=== PATIENT | female | born 1960 | race Two or more races ===

== ENCOUNTER 2024-10-17 02:09 | Inpatient (IN) | payer MEDICAID, SELFPAY ==
[2024-10-17] VITALS (12 sets, daily range): BP systolic 108–166; BP diastolic 65–102; PULSE 70–101; RESP 13–99; TEMP 36.1–37.1; O2SAT 94–99; BMI 32.5
--- NOTE | 2024-10-17 | XR_ITS ---
Examinations: MRI Brain without intravenous contrast. MRA brain without intravenous contrast. MRA carotids without intravenous contrast 3-D vascular reconstructions Date and time of exam: October 09, 2024 0930 hrs. Indications: Headache dizziness and ataxia beginning 10:00 PM last night Technique: Multiple axial and sagittal images of the brain have been obtained MRA brain carotid images without contrast obtained, including 3-D postprocessing, vascular maximum intensity projection images Findings: Sellaturc[place] is not enlarged. The optic chiasm and infundibular stalk are not remarkable. Prepontine and interpeduncular cisterns are not enlarged. No localized enlargement of the medulla or dorys. Fourth ventricle and cerebellar tonsils normal in position. Subacute hemorrhage is not seen. Fourth ventricle is midline. Mass in the cerebellopontine angle region is not evident. 7th and 8th nerve complexes exhibits symmetry. Globes are symmetrical with no retro-orbital mass. Increased white matter signal not significant Diffusion-weighted images demonstrate 4 mm focus restricted diffusion right cerebellar hemisphere, diffusion image 6 with possible signal deficit on the ADC map Mass-effect upon the ventricular system is not identified. MRA carotid images no significant carotid stenoses. MRA brain images 15 mm segment 80% plus stenosis M1 segment left middle cerebral artery Impression: 4 mm focus restricted diffusion right cerebellar hemisphere which may represent an acute infarct, recommend neurology consultation and correlation with clinical findings 15 mm segment 80% plus stenosis M1 segment left middle cerebral artery
--- NOTE | 2024-10-17 02:53 | EKG_ITS ---
[facility] (Formerly [facility]) Test Date: 2024-10-17 Pat Name: REJI HUGGINS Department: Room: - Gender: Female Scrap Piler: : 1960 Requested By: Ketan Crow Order Number: [id number] Reading MD: Ketan Crow Measurements Intervals Leslie Rate: 95 P: 23 WY: 190 QRS: -5 QRSD: 102 T: 26 QT: 384 QTc: 485 Interpretive Statements SINUS RHYTHM LOW QRS VOLTAGE IN PRECORDIAL LEADS [QRS DEFLECTION < 1.0 mV IN CHEST LEADS] MINIMAL VOLTAGE CRITERIA FOR LVH, CONSIDER NORMAL VARIANT [MEETS CRITERIA IN ONE OF: R(aVL), S(V1), R(V5), R(V5/V6)+S(V1)] Compared to ECG 10/07/2022 04:09:12 Low QRS voltage now present Sinus tachycardia no longer present Myocardial infarct finding no longer present /store/S0/[id number].pdf
--- NOTE | 2024-10-17 02:53 | XR_ITS ---
Examination: CTA carotids with intravenous contrast CTA brain, head with intravenous contrast. 2-D sagittal, coronal reconstructions. 3-D reconstructions. Exam date and time: October 09, 2024 0324 hrs. Indications: Stroke alert, onset focal neurologic deficit today CTDI: vol (mGy) 11.1 DLP: (mGycm) 428 Technique: Multiple CTA axial brain, head carotid images post intravenous contrast injection 75 cc, [id number]. 2-D sagittal, coronal reconstructions. 3-D reconstructions, 3-D post processing including vascular maximum intensity projection images. Low dose protocols were performed. One or more of the following dose reduction techniques were used; automated exposure control, adjustment of the mA and/or KV according to patient size, use of iterative reconstruction technique. Findings: Diffusely small left vertebral artery in the neck, both vertebral arteries in the neck are intact No significant stenosis right common carotid artery carotid bifurcation or internal carotid artery Moderate calcification at the left carotid bifurcation but no significant stenosis involving the left common carotid (carotid bifurcation or left internal carotid artery 70% stenosis mid M1 segment left middle cerebral artery No large vessel occlusions Posterior cerebral branches basilar artery do fill as well as anterior cerebral branches Impression: No significant neck arterial stenoses 70% stenosis mid M1 segment left middle cerebral artery
--- NOTE | 2024-10-17 02:53 | XR_ITS ---
Examination: CT brain head without contrast. 2-D sagittal coronal reconstructions Date and time of exam:October 09, 2024 0259 hrs. Indications: Stroke alert, onset focal neurologic deficit today, including onset vertigo dizziness nausea ataxia CTDI: vol (mGy):45.3 DLP: (mGycm):867 Technique: Multiple CT axial sections of the brain have been obtained, 5 mm slice thickness. Contrast has not been administered. 2-D sagittal, coronal reconstructions have been obtained Low dose protocols were performed. One or more of the following dose reduction techniques were used; automated exposure control, adjustment of the mA and/or KV according to patient size, use of iterative reconstruction technique. Findings: No significant ventricular enlargement. Intra-axial or extra-axial hemorrhage density is not seen. No mass effect or midline shift Basal cisterns are not remarkable. Fourth ventricle is midline. Cranial vault intact. Impression: Negative for acute hemorrhage, mass effect or midline shift As clinically warranted, brain MRI MRA without contrast follow-up would best assess for early acute ischemic change as well as assess for demyelinating disease
--- NOTE | 2024-10-17 02:54 | PD.EDRME ---
Rapid Medical Screening Exam [facility] Arrival date/time: 10/17/24 02:09 64F with history of DM presents to ED with daughter for XAVIER, dizziness, and N/V starting between 10 PM to midnight yesterday. On exam, patient has nystagmus. Chief Complaint: Headache Vital signs: Vital Signs Temperature 98.0 F 10/17/24 02:36 Pulse Rate 84 10/17/24 02:36 Respiratory Rate 18 10/17/24 02:36 Blood Pressure 166/95 H 10/17/24 02:36 Pulse Oximetry (%) 99 10/17/24 02:36 Oxygen Delivery Method Room Air 10/17/24 02:36
--- NOTE | 2024-10-17 02:56 | PC.NURSE ---
stroke consult Case # [id number]
--- NOTE | 2024-10-17 03:10 | PD.EDHA ---
ED Headache RME/HPI General Chief Complaint: Headache Stated Complaint: HEADACHE,NAUSEA, DIZZY Time Seen by Provider: 10/17/24 02:56 Arrival date/time: 10/17/24 02:09 RME / HPI RME / HPI Narrative: 10/17/24 02:09 64F with history of DM presents to ED with daughter for XAVIER, dizziness, and N/V starting between 10 PM to midnight yesterday. On exam, patient has nystagmus. ------- Dr. Branch?s Main ED Evaluation: 64yo female presents to the ED for complaints of dizziness, a headache, and nausea x tonight. Patient's daughter states the patient has been complaining of a headache for the last 3 hours, reporting she's been feeling dizzy and nauseous. Patient denies any falls or injuries. Patient denies any chest pain, shortness of breath or any other associated symptoms. No known allergies. Related Data Home Medications ?Medication ?Instructions ?Recorded ?Confirmed cyclobenzaprine 10 mg tablet 10 mg PO HS PRN cramping 10/17/24 10/17/24 dapagliflozin propaned 5 1 tab PO BID 10/17/24 10/17/24 mg-metformin ER 1,000 mg tablet, ext rel 24hr (Xigduo XR) ergocalciferol (vitamin D2) 1,250 1,250 mcg PO QWEEK 10/17/24 10/17/24 mcg (50,000 unit) capsule multivitamin 1 tab PO QDAY 10/17/24 10/17/24 Previous Rx's ?Medication ?Instructions ?Recorded aspirin 81 mg tablet,delayed 81 mg PO QDAY 30 days #30 tabs 10/19/24 release atorvastatin 40 mg tablet 40 mg PO HS 30 days #30 tabs 10/19/24 clopidogrel 75 mg tablet 75 mg PO QDAY 19 days #19 tabs 10/19/24 Allergies Allergy/AdvReac Type Severity Reaction Status Date / Time No Known Allergies Allergy Verified 10/17/24 02:12 Review of Systems Review of Systems Systems Reviewed: All systems reviewed, normal except as documented Narrative Review of Systems: Gen: No fever, no chills, no weight loss EYES: No discharge, no visual changes, no pain HEENT: No ear pain, no congestion, no sore throat PULM: no shortness of breath, no cough, no congestion CV: No chest pain, no dyspnea on exertion, no palpitations GI: + nausea, no vomiting, no diarrhea, no pain, no constipation : No frequency, no urgency, no dysuria Musc/skel: No joint pain, no back pain Skin: No rash. Warm and dry. Psyc: No hallucinations, no depression Heme/Lymph: No easy bleeding or bruising tendencies Neuro: No weakness, + headache, + dizziness Past Medical History Past Medical History CARDIAC: Negative Cardiac Disorders or Congestive Heart Failure RESPIRATORY: Negative Chronic Obstructive Pulmonary Disease (COPD) or Asthma GENITOURINARY: Negative Renal Disease ENDOCRINE: Negative Diabetes Mellitus Type 1 or Diabetes Mellitus Type 2 HEMATOLOGIC: Negative Sickle Cell Disease Surgical History SURGICAL: Positive Section Social History SMOKING STATUS: Never smoker SUBSTANCE USE: does not use ED Exam Narrative Physical exam: GENERAL APPEARANCE: alert and oriented x 4, well-developed, well-nourished, no acute distress VITALS: All vitals were reviewed and the pulse ox is 99% on room air, which is normal according to my interpretation. HEENT: Normocephalic, atraumatic; pupils equal, round, reactive to light; EOMI, mild right horizontal nystagmus that worsens with positional changes; mucous membranes pink, moist; oropharynx clear NECK: Supple LUNGS: CTABL; no wheezes, no rales, no rhonchi HEART: Tachycardia, regular rhythm; normal S1, S2; no murmurs ABDOMEN: non distended; normal BS; soft, no tenderness, no guarding, no rebound; no masses, no organomegaly, no hernia BACK: no CVA tenderness EXTREMITIES: atraumatic; no edema NEUROLOGIC: awake; alert and oriented x4; cranial nerves II-XII grossly intact; no focal sensory or motor deficits; no intention tremor, steccato speech, dysmetria or dysdiadochokinesia PSYCHIATRIC: appropriate mood and affect SKIN: warm, dry, normal color; no rashes Course Course Course Narrative: 0600: Care signed out to Dr. Suarez (emergency physician). Past medical, surgical, social and family history reviewed. Vitals and home medications reviewed. Results and treatment plan discussed. They will assume the care of the patient at this time and will follow the patient, pending MRI. Quality Measures none Orders Category Date Time Status Bedside Blood Glucose NOW Care 10/17/24 02:53 Completed Shredding Machine Knife Changer NOW Care 10/17/24 02:53 Completed Continuous Pulse Oximetry NOW Care 10/17/24 02:53 Completed EKG (ED ONLY) *Do not use* NOW Care 10/17/24 02:53 Completed Fingerstick [Bedside Blood Glucose] NOW Care 10/17/24 02:53 Completed Insert IV NOW Care 10/17/24 02:53 Completed MRI Screening NOW Care 10/17/24 05:21 Completed MRI Screening NOW Care 10/17/24 07:42 Completed NIH Stroke Scale now Care 10/17/24 02:53 Completed NPO NOW Care 10/17/24 02:53 Completed Nurse Swallow Screen x1 Care 10/17/24 02:53 Completed Consult to Neurology / Tele-Neurology Routine Cons 10/17/24 02:[address] angio stroke protocol Stat Exams 10/17/24 02:[address] stroke protocol Stat Exams 10/17/24 02:53 Completed EKG (ED Only) Stat Exams 10/17/24 02:53 Draft MR stroke protocol Stat Exams 10/17/24 Completed CBC Stat Lab 10/17/24 03:04 Completed Comprehensive Metabolic Panel Stat Lab 10/17/24 03:04 Completed Drug Screen,Urine Stat Lab 10/17/24 04:08 Completed Magnesium Stat Lab 10/17/24 03:04 Completed Partial Thromboplastin Time Stat Lab 10/17/24 03:04 Completed Prothrombin Time with INR Stat Lab 10/17/24 03:04 Completed Troponin I Stat Lab 10/17/24 03:04 Completed Urinalysis Stat Lab 10/17/24 04:06 Completed Urine Culture Stat Lab 10/17/24 04:08 Completed Aspirin Chew Med 10/17/24 05:28 Discontinued 81 mg PO X1 ONE Aspirin [Ecotrin] Med 10/18/24 09:00 Discontinued 81 mg PO QDAY LORazepam [Ativan Inj] Med 10/17/24 07:42 Discontinued 1 mg IVP X1 ONE Meclizine HCl [Antivert] Med 10/17/24 02:56 Discontinued 25 mg PO X1 ONE Ondansetron Inj [Zofran Inj] Med 10/17/24 02:53 Discontinued 4 mg IV Q4HR PRN Sodium Chloride 0.9% 1000 ml [Ns] 1,000 ml Med 10/17/24 04:03 Discontinued IV 999 mls/hr Oxygen Delivery NOW RT 10/17/24 02:53 Completed Vital Signs Vital signs: Vital Signs Temperature 98.0 F 10/17/24 02:36 Pulse Rate 84 10/17/24 02:36 Respiratory Rate 18 10/17/24 02:36 Blood Pressure 166/95 H 10/17/24 02:36 Pulse Oximetry (%) 99 10/17/24 02:36 Oxygen Delivery Method Room Air 10/17/24 02:36 Headache MDM Narrative MDM Narrative:: Scribe Attestation: 10/17/24 Danette Ramos am scribing for and in the presence of Dr. Branch. Patient data External records reviewed:: [facility] previous records (Per chart review, patient was seen here on 05/23/24 for a closed head injury.) Clinical information provided by:: patient Social determinants that could affect healthcare access:: none Patient has the following chronic illnesses:: none How is presenting disease/condition affected by chronic disease/condition?: no chronic disease Evaluation data The following diagnostics were reviewed and interpreted by me:: lab results, radiology exam(s) and EKG tracing(s) Lab and/or radiology exams considered but not ordered:: none Interpretation Summary: CBC is normal, CMP is normal, troponin is normal, UA is positive for a UTI, UDS is negative, according to my interpretation. EKG done at 337, sinus tachycardia, rate of 111, normal axis, no ectopy, generalized ST abnormalities, no STEMI, according to my interpretation. ------ Telerad Preliminary Report Draft Patient: REJI HUGGINS [facility] Record#: [id number] Birthdate: 1960 Age/Sex: 64 / F Location: [facility] Attending Dr: Ordering Physician: Date of Service: Procedure(s): Accession Number(s): cc: ~ CT scan of the head without intravenous contrast (axial sections with sagittal and coronal reformats) October 17, 2024 at 0259 hours Clinical history: Focal neuro deficit, stroke suspected. Comparison: No prior study is available for comparison. Findings: There is no evidence of intracranial hemorrhage, mass effect or midline shift. No definitive wedge-shaped acute infarcts are detected. The ventricles, sulci, and basal cisterns are unremarkable. Empty sella is noted. The calvarium is unremarkable. The mastoid air cells and the visualized paranasal sinuses are clear. Impression: No evidence of acute infarct, intracranial hemorrhage, mass effect or midline shift. If there are persistent clinical symptoms or additional clinical concerns, consider MRI. Other findings as described above. Discussion Details: Results verbally communicated to : Dr. Crow at 03:27 AM 10/17/2024 Report Electronically Signed By: Yoselin Washington 10/17/2024 3:27:14 AM [EST] Medications / Prescriptions Medications or Prescriptions considered but not ordered:: none Medication administrations:: Medication Administration History Discontinued Medications Acetaminophen (Acetaminophen 325 Mg Tablet) 650 mg PO Q6H PRN PRN Reason: Fever >100.3 or pain Stop: 11/16/24 12:27 Albuterol/Ipratropium (Albuterol/Ipratropium (Duoneb) Rt Tracy 3 Ml Nebu) 3 ml INH Q2HR PRN PRN Reason: SHORTNESS OF BREATH OR WHEEZE Stop: 11/16/24 12:27 Aspirin (Aspirin 81 Mg Chew) 81 mg PO X1 ONE Stop: 10/17/24 05:29 Last Admin: 10/17/24 05:40 Dose: 81 mg Documented By: MAIK Aspirin (Aspirin Ec 81 Mg Tabec) 81 mg PO QDAY NEHA Stop: 11/17/24 08:59 Aspirin (Aspirin Ec 81 Mg Tabec) 81 mg PO QDAY NEHA Stop: 11/17/24 08:59 Last Admin: 10/19/24 08:23 Dose: 81 mg Documented By: Admin: 10/18/24 09:06 Dose: 81 mg Documented By: BERTO Atorvastatin Calcium (Atorvastatin Calcium 20 Mg Tablet) 40 mg PO HS NEHA Stop: 11/16/24 20:59 Last Admin: 10/18/24 22:55 Dose: 40 mg Documented By: Admin: 10/17/24 20:38 Dose: 40 mg Documented By: SELINA Clopidogrel Bisulfate (Clopidogrel Bisulfate 75 Mg Tablet) 75 mg PO QDAY NEHA Stop: 11/16/24 12:44 Last Admin: 10/19/24 08:23 Dose: 75 mg Documented By: Admin: 10/18/24 09:06 Dose: 75 mg Documented By: Admin: 10/17/24 14:38 Dose: 75 mg Documented By: MC Heparin Sodium (Porcine) (Heparin Sod Inj 5000 Unit/Ml Vial) 5,000 unit SC BID NEHA Stop: 10/31/24 12:44 Last Admin: 10/19/24 08:25 Dose: 5,000 unit Documented By: DEV Co-signed By: AZALIA Admin: 10/18/24 23:00 Dose: 5,000 unit Documented By: ROGERS Co-signed By: SA Admin: 10/18/24 09:07 Dose: 5,000 unit Documented By: BERTO Co-signed By: EDWAR Admin: 10/17/24 20:38 Dose: 5,000 unit Documented By: CG Co-signed By: AM Admin: 10/17/24 14:42 Dose: 5,000 unit Documented By: MC Co-signed By: MEHUL Sodium Chloride (Ns) 1,000 mls @ 999 mls/hr IV .Q1H1M ONE Stop: 10/17/24 05:03 Last Infusion: 10/17/24 05:35 Dose: Infused Documented By: Admin: 10/17/24 04:21 Dose: 999 mls/hr Documented By: MAIK Influenza Virus Vaccine Quadrival (Influenza Virus Quadrivalent 0.5 Ml Syringe) 0.5 ml IMi .ONCE ONE Stop: 10/18/24 08:01 Last Admin: 10/18/24 09:07 Dose: 0.5 ml Documented By: BERTO Lorazepam (Lorazepam 2 Mg/Ml Vial) 1 mg IVP X1 ONE Stop: 10/17/24 07:43 Last Admin: 10/17/24 09:01 Dose: 1 mg Documented By: JUDY Meclizine HCl (Meclizine Hcl 25 Mg Tablet) 25 mg PO X1 ONE Stop: 10/17/24 02:57 Last Admin: 10/17/24 03:36 Dose: 25 mg Documented By: MAIK Ondansetron HCl (Ondansetron Inj 2 Mg/Ml Inj 2 Ml) 4 mg IV Q4HR PRN PRN Reason: NAUSEA OR VOMITING Stop: 11/16/24 02:52 Ondansetron HCl (Ondansetron Inj 2 Mg/Ml Inj 2 Ml) 4 mg IV Q6H PRN; Protocol PRN Reason: NAUSEA OR VOMITING Stop: 11/16/24 12:27 Pantoprazole Sodium (Pantoprazole 40 Mg Tablet) 40 mg PO QDAY NEHA Stop: 11/16/24 12:29 Last Admin: 10/19/24 08:23 Dose: 40 mg Documented By: Admin: 10/18/24 09:06 Dose: 40 mg Documented By: Admin: 10/17/24 14:38 Dose: 40 mg Documented By: AARON Sennosides (Senna Tablet) 1 tab PO QDAY NEHA; Protocol Stop: 11/16/24 12:29 Last Admin: 10/19/24 08:23 Dose: 1 tab Documented By: Admin: 10/18/24 09:06 Dose: 1 tab Documented By: Admin: 10/17/24 14:38 Dose: 1 tab Documented By: AARON see above Consultations Consultation(s) initiated? (list below): Yes Consultation #1 (Physician, Specialty, Details): Discussed case with [Dr. Medina] from [teleneurology] regarding [consultation]. Discussed patients ED course, exam findings, labs, and radiology results. States the patient is not having a stroke and does not recommend tPA at this time. Time: 03:48 Diagnosis Differential diagnosis headache: other (CVA, TIA, cerebellar ischemia stroke, cerebellar bleed, brainstem stroke, brainstem mass, peripheral vertigo) Most likely diagnosis given after review of the tests above:: final dx pending at signout Admission Indicated Admission indicated?: not indicated Admission Request Was there a request for admission?: No Disposition Plan Disposition Plan: other (specify) (Signed out to Dr. Suarez at 0600 pending MRI.) Critical Care Time Critical Care Time Critical Care Time: Yes Total Critical Care Time (min.): 45 Attestation: The high probability of sudden, clinically significant deterioration in the patient?s condition required the highest level of my preparedness to intervene urgently. The services I provided to this patient were to treat and/or prevent clinically significant deterioration. Services included the following: chart data review, reviewing nursing notes and/or old charts, documentation time, design consultant collaboration regarding findings and treatment options, medication orders and management, direct patient care, vital sign assessments and ordering, interpreting and reviewing diagnostic studies and lab tests. Aggregate critical care time includes only time during which I was engaged in work directly related to the patient?s care, as described above, whether at bedside or elsewhere in the Emergency Department. It did not include time spent performing other reported procedures or the services of residents, students, nurses or physician assistants. Discharge Plan Plan Patient Disposition: Admit Acute Care w/in Hospital Problem List Clinical Impression: Cerebellar infarction Patient/Caregiver Discharge Instructions Other Activity Instructions:: Please take your new medications as indicated: Atorvastatin 40 mg once a day Clopidogrel 75 mg once a day Aspirin 81 mg once a day Follow up with your primary care doctor and be referred to a neurologist. Please follow up with your Primary Care Provider for an outpatient referral to a neurologist for follow up Please return to the emergency department if your symptoms worsen or recur.
[2024-10-17 03:25] LABS: Basophils % (Auto) 0 % (0-2.5); Eosinophils # (Auto) 0.1 Thou/mm3 (0.0-0.5); Eosinophils % (Auto) 1 % (0-10); Hematocrit 39.5 % (36.0-46.0); Hemoglobin 13.2 g/dL (12.0-16.0); Immature Granulocytes % (Auto) 0 % (0-0); Immature Granulocytes Auto 0.02 Thou/mm3 (0.00-0.00); Lymphocytes # (Auto) 2.3 Thou/mm3 (1.0-4.8); Lymphocytes % (Auto) 30 % (10-50); Mean Corpuscular HGB Conc 33.4 g/dl (31.0-37.0); Mean Corpuscular Hemoglobin 29.3 pg (25.0-35.0); Mean Corpuscular Volume 88 fL (80-100); Monocytes # (Auto) 0.8 Thou/mm3 (0.0-0.8); Monocytes % (Auto) 10 % (0-12); Neutrophils # (Auto) 4.7 Thou/mm3 (1.8-7.7); Neutrophils % (Auto) 59 % (37-80); Nucleated Red Blood Cell % 0 /100 WBC (0); Platelet Count 239 Thou/mm3 (140-440); White Blood Count 7.9 Thou/mm3 (3.6-11.0)
--- NOTE | 2024-10-17 03:28 | PRELIM_ITS ---
CT scan of the head without intravenous contrast (axial sections with sagittal and coronal reformats) October 17, 2024 at 0259 hoursClinical history: Focal neuro deficit, stroke suspected.Comparison: N o prior study is available for comparison. Findings:There is no evidence of intracranial hemorrhage, mass effect or midline shift. No definitive wedge-shaped acute infarcts are detected. The ventricles , sulci, and basal cisterns are unremarkable. Empty sella is noted. The calvarium is unremarkable. Th e mastoid air cells and the visualized paranasal sinuses are clear.Impression:No evidence of acute in farct, intracranial hemorrhage, mass effect or midline shift. If there are persistent clinical sympto ms or additional clinical concerns, consider MRI. Other findings as described above. Discussion Mara sanchez: Results verbally communicated to : Dr. Crow at 03:27 AM 10/17/2024 Report Electronically Signed B y: Yoselin Washington 10/17/2024 3:27:14 AM [EST]
[2024-10-17 03:33] LABS: Partial Thromboplastin Time 28.8 Seconds (22.0-36.0); Prothrombin Time 11.3 Seconds (9.0-12.2)
[2024-10-17] MEDS: MECLIZINE HCL 25 MG TABLET PO (03:36)
[2024-10-17 03:48] LABS: Alanine Aminotransferase < 7 U/L (10-49); Albumin, Serum 4.7 gm/dL (3.4-4.8); Albumin/Globulin Ratio 1.8 (1.2-2.2); Alkaline Phosphatase 102 U/L (46-116); Anion Gap 6 (7-16); Aspartate Amino Transferase 11 U/L (0-34); BUN/Creatinine Ratio 15 Ratio (12-20); Bilirubin,Total 0.4 mg/dL (0.3-1.2); Blood Urea Nitrogen 9 mg/dL (9-23); Calcium 9.5 mg/dL (8.3-10.6); Calcium (Corrected) 9.5 mg/dL (8.5-10.1); Carbon Dioxide 28.5 mMol/L (20.0-31.0); Chloride 108 mMol/L (98-107); Creatinine (Component) 0.6 mg/dL (0.6-1.3); Estimated Creatinine Clearance 81.1 mL/min (>60); Globulin 2.6 gm/dL (2.3-3.5); Glucose 136 mg/dL (74-106); Magnesium 1.8 mg/dL (1.6-2.6); Osmolality,Calculated 283 (275-295); Potassium 3.5 mMol/L (3.4-5.1); Sodium 142 mMol/L (136-145); Total Protein 7.3 gm/dL (5.7-8.2); Troponin I < 0.002 ng/mL (0.0-0.045); eGFR > 60 See Note
--- NOTE | 2024-10-17 03:50 | PD.TNEURO ---
Tele Neuro Consultation Consultation Date 10/17/24 Most Recent Vital Signs Last Vital Signs Temp 98.0 F 10/17/24 02:36 Pulse 84 10/17/24 02:36 Resp 18 10/17/24 02:36 BP 166/95 H 10/17/24 02:36 Pulse Ox 99 10/17/24 02:36 O2 Del Method Room Air 10/17/24 02:36 Laboratory-Coagulation Panel PT 11.3 Seconds (9.0-12.2) 10/17/24 03:04 INR 1.0 (0.9-1.3) 10/17/24 03:04 APTT 28.8 Seconds (22.0-36.0) 10/17/24 03:04 Consultation Narrative [facility] Tele[facility]urology Consult Services Patient Name:???Kiana Glez Date of :???1960 Identification Number:??? Date of Service:???10/17/2024 02:55:48 Diagnosis:?R42 - Dizziness/ Vertigo/ Giddiness Impression: ?Kiana Glez is a 64 y.o. woman with a history of diabetes, cataracts who was LKW around 2230 on 10/16/24 when she went to sleep. She got up around 0100 to go to the bathroom and felt very dizzy. She feels like the room is spinning. She is unable to stand up by herself because of the dizziness. The dizziness is constant. She is nauseated. Denies any unilateral weakness. Denies any change in speech. Denies any new change in vision but says she has blurry vision at baseline because of cataracts. She had headache earlier, but it has improved. She says she has not been taking her diabetes medications for the past week because she ran out. NIHSS 1 for possible L upper quadrant visual field deficit. Non contrast head CT shows no acute findings. CTA head/neck shows no LVO. There is a non-dominant L vertebral artery. Differential diagnosis includes peripheral vestibulopathy given the isolated vertigo vs acute stroke since she says the dizziness is constant. She is out of the window for TNK. ? ? ?Recommendations: ?- [place]pike if able; if [place]pike is positive, patient will need canalith repositioning maneuver (e.g. Eliot or [place]); patient should be sent home with instructions so the maneuvers can be repeated if necessary ?- Start aspirin 81 mg daily for stroke prevention for now; can D/C if MRI brain shows no acute stroke ?- Permissive hypertension up to 220/120 x 24 hours or less if MRI happens sooner and shows no acute stroke; then goal BP normotensive ?- Continuous cardiac monitoring to evaluate for paroxysmal atrial fibrillation ?- MRI brain without contrast to evaluate for acute ischemia ?- Send routine stroke labs including HbA1c, fasting lipid panel ?- PT/OT/ST evaluation when able ? Our recommendations are outlined below. Recommendations: ? Stroke/Telemetry Floor ? Neuro Checks ? Bedside Swallow Eval ? DVT Prophylaxis ? IV Fluids, Normal Saline ? Head of Bed 30 Degrees ? Euglycemia and Avoid Hyperthermia (PRN Acetaminophen) ? Initiate or continue Aspirin 81 MG daily ? Antihypertensives PRN if Blood pressure is greater than 220/120 or there is a concern for End organ damage/contraindications for permissive HTN. If blood pressure is greater than 220/120 give labetalol PO or IV or Vasotec IV with a goal of 15% reduction in BP during the first 24 hours. Sign Out: ? Discussed with Emergency Department Provider Metrics: Last Known Well: 10/16/2024 22:30:00 Dispatch Time: 10/17/2024 02:55:48 Arrival Time: 10/17/2024 02:09:00 Initial Response Time: 10/17/2024 03:01:40Symptoms: dizziness. Initial patient interaction: 10/17/2024 03:04:43 NIHSS Assessment Completed: 10/17/2024 03:16:00Patient is not a candidate for Thrombolytic. Thrombolytic Medical Decision: 10/17/2024 03:16:02Patient was not deemed candidate for Thrombolytic because of following reasons: LKW outside 4.5 hr window. . I personally Reviewed the CT Head and it Showed no signs of acute ischemia or acute hemorrhage. I personally reviewed the CTA head/neck. There are no signs of LVO. There is a non-dominant L vertebral artery. Primary Provider Notified of Diagnostic Impression and Management Plan on: 10/17/2024 03:49:40 History of Present Illness:Patient is a 64 year old Female. Patient was brought by private transportation with symptoms of dizziness. Kiana Glez is a 64 y.o. woman with a history of diabetes, cataracts who was LKW around 2230 on 10/16/24 when she went to sleep. She got up around 0100 to go to the bathroom and felt very dizzy. She feels like the room is spinning. She is unable to stand up by herself because of the dizziness. The dizziness is constant. She is nauseated. Denies any unilateral weakness. Denies any change in speech. Denies any new change in vision but says she has blurry vision at baseline because of cataracts. She had headache earlier, but it has improved. She says she has not been taking her diabetes medications for the past week because she ran out. 316 ? Past Medical History: Other PMH:? diabetes, cataracts Medications: No Anticoagulant use? No Antiplatelet use Reviewed EMR for current medications Allergies:? Reviewed,NKDA Social History: Smoking: No Alcohol Use: No Family History: There is no family history of premature cerebrovascular disease pertinent to this consultation ROS : 14 Points Review of Systems was performed and was negative except mentioned in HPI. Past Surgical History: There Is No Surgical History Contributory To Today?s Visit ? Examination: BP(160/90),?Pulse(93), 1A: Level of Consciousness - Alert; keenly responsive?+ 0 1B: Ask Month and Age - Both Questions Right?+ 0 1C: Blink Eyes & Squeeze Hands - Performs Both Tasks?+ 0 2: Test Horizontal Extraocular Movements - Normal?+ 0 3: Test Visual Patrick - Partial Hemianopia?+ 1 4: Test Facial Palsy (Use Grimace if Obtunded) - Normal symmetry?+ 0 5A: Test Left Arm Motor Drift - No Drift for 10 Seconds?+ 0 5B: Test Right Arm Motor Drift - No Drift for 10 Seconds?+ 0 6A: Test Left Leg Motor Drift - No Drift for 5 Seconds?+ 0 6B: Test Right Leg Motor Drift - No Drift for 5 Seconds?+ 0 7: Test Limb Ataxia (FNF/Heel-Lane) - No Ataxia?+ 0 8: Test Sensation - Normal; No sensory loss?+ 0 9: Test Language/Aphasia - Normal; No aphasia?+ 0 10: Test Dysarthria - Normal?+ 0 11: Test Extinction/Inattention - No abnormality?+ 0 NIHSS Score:?1 Pre-Morbid Modified [place] Scale:1 Points = No significant disability despite symptoms; able to carry out all usual duties and activities Spoke with :?Dr. Branch This consult was conducted in real time using interactive audio and video technology. Patient was informed of the technology being used for this visit and agreed to proceed. Patient located in hospital and provider located at home/office setting. Patient is being evaluated for possible acute neurologic impairment and high probability of imminent or life-threatening deterioration. I spent total of 45 minutes providing care to this patient, including time for face to face visit via telemedicine, review of medical records, imaging studies and discussion of findings with providers, the patient and/or family. Dr Coleen Medina [facility] For Inpatient follow-up with [facility] physician please call [facility] at . As we are not an outpatient service for any post hospital discharge needs please contact the hospital for assistance. If you have any questions for the [facility] physicians or need to reconsult for clinical or diagnostic changes please contact us via [facility] at .
[2024-10-17 04:20] LABS: Collection Type, Urine Clean Catch
[2024-10-17] MEDS: SODIUM CHLORIDE 0.9% 1000 ML 1,000 ML 999 ML IV (04:21)
[2024-10-17 04:33] LABS: Bilirubin,Urine Negative (Negative); Blood,Urine Negative (Negative); Clarity,Urine Clear (Clear/Hazy); Color,Urine Colorless (Lt Yel-Yel); Glucose, Urine Negative (Negative); Ketones,Urine Negative (Negative); Leukocyte Esterase,Urine Positive (Negative); Nitrite,Urine Negative (Negative); PH,Urine 7.5 (5.0-7.0); Protein,Urine Negative (Neg - Trace); RBC,Urine 3 /hpf (0-3); Specific Gravity,Urine 1.026 (1.001-1.035); Squamous Epithelial Cell,Urine 3 /hpf (0-5); Urobilinogen,Urine Negative mg/dL (0.0-1.0); WBC,Urine 12 /hpf (0-5)
[2024-10-17 04:39] LABS: Amphetamine/Methamp Scrn,U Negative (Negative); Barbiturate Screen,Urine Negative (Negative); Benzodiazepines Screen,Urine Negative (Negative); Benzoylecgonine Screen, Ur Negative (Negative); Fentanyl Screen,Urine Negative (Negative); Opiate Screen,Urine Negative (Negative); THC Screen,Urine Negative (Negative)
[2024-10-17] MEDS: ASPIRIN 81 MG CHEW PO (05:40)
--- NOTE | 2024-10-17 07:17 | PC.NURSE ---
Assuming care of patient. Patient GCS 15 aaox4. States she is not in any pain. vitals stable and patient is resting comfortably in her bed.
--- NOTE | 2024-10-17 07:24 | PD.EDADDENDU ---
Emergency Room Addendum Addendum Narrative: 0600: Care assumed by previous shift provider. Past medical, surgical, social and family history reviewed. Vitals and home medications reviewed. Results and treatment plan discussed. I will assume the care of the patient at this time and will follow the patient, pending final disposition. Patient pending results of MRI for possible cerebellar or posterior CVA given symptoms of vertigo versus ataxia. MRI results are as below. 1030: Case discussed with Dr. Raines, for team a hospitalist service and agrees to admit. Date of Service: 10/17/24 Procedure(s): MR stroke protocol Accession Number(s): [id number] cc: Isela Salinas; Oliver Suarez MD; Harsh Gamble MD~ Examinations: MRI Brain without intravenous contrast. MRA brain without intravenous contrast. MRA carotids without intravenous contrast 3-D vascular reconstructions Date and time of exam: October 09, 2024 0930 hrs. Indications: Headache dizziness and ataxia beginning 10:00 PM last night Technique: Multiple axial and sagittal images of the brain have been obtained MRA brain carotid images without contrast obtained, including 3-D postprocessing, vascular maximum intensity projection images Findings: [place] is not enlarged. The optic chiasm and infundibular stalk are not remarkable. Prepontine and interpeduncular cisterns are not enlarged. No localized enlargement of the medulla or dorys. Fourth ventricle and cerebellar tonsils normal in position. Subacute hemorrhage is not seen. Fourth ventricle is midline. Mass in the cerebellopontine angle region is not evident. 7th and 8th nerve complexes exhibits symmetry. Globes are symmetrical with no retro-orbital mass. Increased white matter signal not significant Diffusion-weighted images demonstrate 4 mm focus restricted diffusion right cerebellar hemisphere, diffusion image 6 with possible signal deficit on the ADC map Mass-effect upon the ventricular system is not identified. MRA carotid images no significant carotid stenoses. MRA brain images 15 mm segment 80% plus stenosis M1 segment left middle cerebral artery Impression: 4 mm focus restricted diffusion right cerebellar hemisphere which may represent an acute infarct, recommend neurology consultation and correlation with clinical findings 15 mm segment 80% plus stenosis M1 segment left middle cerebral artery Dictated By: Harsh Gamble MD Signed By: <Electronically signed by Harsh Gamble MD in OV> 10/17/24 1016
--- NOTE | 2024-10-17 08:50 | PC.NURSE ---
Patient states she feels better. She has some level 3 chest discomfort but states that she feels about back to her baseline
[2024-10-17] MEDS: LORazepam 2 MG/ML VIAL 1 MG IVP (09:01)
--- NOTE | 2024-10-17 09:38 | PC.NURSE ---
Patient went to MRI via wheelchair with [employer]. Linen change provided.
--- NOTE | 2024-10-17 12:34 | ECHO_ITS ---
Transthoracic Echo Report Ht (in): 58 Wt (lb): 156 Exam Location: Portable Status: Emergency Chief Deputy Coroner: Otilia Moran Indications: Procedure Performed: BP: 97 / 54 HR: 73 Rhythm: Sinus Technical Quality: Fair Contrast: Agitated Saline Total Dose (mL): MEASUREMENTS (Male / Female) Normal Values 2D ECHO LV Diastolic Diameter PLAX 4.3 cm 4.2 - 5.9 / 3.9 - 5.3 cm LV Systolic Diameter PLAX 3.2 cm IVS Diastolic Thickness 0.9 cm 0.6 - 1.0 / 0.6 - 0.9 cm LVPW Diastolic Thickness 1.0 cm 0.6 - 1.0 / 0.6 - 0.9 cm LV Relative Wall Thickness 0.4 LVOT Diameter 1.9 cm LA Volume Index 17.8 cm?/m? 16 - 28 cm?/m? Ascending Aorta Diameter 2.4 cm M-MODE Aortic Root Diameter MM 2.6 cm LA Systolic Diameter MM 3.9 cm LA Ao Ratio MM 1.5 AV Cusp Separation MM 2.0 cm DOPPLER AV Peak Velocity 129.0 cm/s AV Peak Gradient 6.7 mmHg AV Mean Gradient 4.0 mmHg AV Velocity Time Integral 23.2 cm LVOT Peak Velocity 93.1 cm/s LVOT Peak Gradient 3.5 mmHg LVOT Velocity Time Integral 16.1 cm LVOT Cardiac Index 1920.7 cm?/min?m? AV Area Cont Eq vti 2.0 cm? AV Area Cont Eq pk 2.0 cm? MV Peak Velocity 87.5 cm/s MV Peak Gradient 3.1 mmHg MV Mean Velocity 48.0 cm/s MV Mean Gradient 1.0 mmHg MV Area PHT 3.7 cm? Mitral E Point Velocity 59.7 cm/s Mitral A Point Velocity 87.3 cm/s Mitral E to A Ratio 0.7 LV E' Lateral Velocity 7.0 cm/s Mitral E to LV E' Lateral Ratio 8.6 LV E' Septal Velocity 6.0 cm/s Mitral E to LV E' Septal Ratio 10.0 TR Peak Velocity 166.0 cm/s TR Peak Gradient 11.0 mmHg FINDINGS Left Ventricle Normal left ventricular size, wall thickness, systolic function with no obvious regional wall motion abnormalities. The ejection fraction is visually estimated at 55%. Right Ventricle The right ventricle is normal in size and systolic function. The estimated right ventricular systoli c pressure, 16 mmHg. RAP 5. Left Atrium The left atrium is normal by two-dimensional, color flow and Doppler imaging with no structural abnormalities, no thrombus formation present. Right Atrium The right atrium is normal by two-dimensional imaging, color flow and Doppler imaging with no struct ural abnormalities, no thrombus formation present. Atrial Septum The interatrial septum appears normal with no evidence of a shunt. Aorta The aorta is normal by two-dimensional, color flow and Doppler interrogation. Mitral Valve The mitral valve is normal by two-dimensional, color flow and Doppler interrogation. There is no sig nificant mitral valve regurgitation. Aortic Valve The aortic valve is trileaflet and normal by two-dimensional, color flow and Doppler interrogation. There is trace aortic valve regurgitation. Tricuspid Valve The tricuspid valve is normal by two-dimensional, color flow and Doppler interrogation. There is tra ce tricuspid valve regurgitation. Pulmonic Valve There is no significant pulmonic valve regurgitation. Vessels The pulmonary artery appears normal. The inferior vena cava pulmonary and hepatic veins appear laura l. Pericardium The pericardium is normal by two-dimensional imaging. There is no significant pericardial effusion. CONCLUSIONS Negative bubble study. No evidence of PFO or ASD. Normal LV size and function. Normal RV size and function. Trace AI, TR. Peace Molina (Electronically Signed) Final Date: 19 October 2024 14:20
--- NOTE | 2024-10-17 13:54 | ESHP_ITS ---
<Statement entered by Sruthi Street MD - 10/17/24 15:57> Patient is a 64 year old female with PMH of DM2 who presents to the ER for dizziness/vertigo that started on 10/16 around 1am. She came to the ER and stroke alert was called. Initial NIHHS score was 1. Head CT and MRI imaging confirmed a 4mm right cerebellar stroke. No TPA as she was outside the timeframe window. This morning, patient states she is feeling a bit better. Daughter is at bedside. Vitals are stable. No nystagmus noted on exam, and strength in tact. Labs were unremarkable. Will admit for acute ischemic stroke and start aspirin, plavix, statin. Will get lipid panel, TSH, A1c, echo and physical therapy. Sruthi Street MD PGY-3 Documentation for date of: 10/17/24 HPI History of Present Illness Chief complaint: Dizziness History of present illness: HPI: Patient is a 64-year-old female with a past medical history significant for ctn-oyzigtn-hszbzxvqo diabetes mellitus type 2, diabetic neuropathy and cataracts. She she presented with a chief complaint of dizziness. According to patient she woke up around 1 AM to use the bathroom and felt dizzy. She described it as the room was spinning. She was unable to stand up by herself because of the dizziness. Reported as constant. Associated with nausea. Denied any unilateral weakness. Also denies any vomiting, fever, chills, sick contacts. Upon review also denied any chest pain, SOB, PND or orthopnea. Also denies any dysuria. Of note patient states that she ran out of her diabetic medication for the past week. ED course: BP 166/95, pulse 84, RR 18, temp 98F, SpO2 99% on room air. Labs significant for Hb 13.2, HCT 39.5, BUN 9, CR 0.6. Urinalysis significant for 1 positive leukocyte ester[address] negative for acute hemorrhage, mass effect or midline shift. Head/neck CTA significant for 70% stenosis mid M1 segment left MCA. Brain MRI with MRA significant for 4 mm focus restricted diffusion right cerebellar hemisphere which may represent an acute infarct. 15 mm segment 80% plus stenosis M1 segment left MCA In the ED patient received meclizine 25 Mg p.o. x 1, normal saline 1 L IVF bolus and aspirin 325 Mg p.o. x 1. Patient will be admitted for workup and management of acute ischemic stroke. Review of Systems Review of Systems Narrative Review of Systems: GENERAL: Denies fever/chills or diaphoresis. HEENT: As above. Neuro: Denies unusual weakness or difficulty speaking. CARDIO: Denies chest pain or palpitations. PULM: Denies SOB, couging or wheezing. GI: Denies abdominal pain, N/V/C/D. Reports having BMs. URO: Denies buring/itching/pain/urinary changes. MSK/EXT/SKIN: Denies joint/skeletal/muschle pain, issues/changes in upper or lower extremities, itchiness, or superficial pain. PSYCH: Cooperative, pleasant mood & affect. The rest of the review of systems is otherwise negative. Past Medical History Past Medical History Comments [facility] COMMENT: Past medical history: ?NIDDM type II Medication list: ?Xigduo 02/1000 Allergies: NKFDA Social history: Tobacco use: Denies ETHO use: Denies Illicit drug use: Denies Exam Vital Signs Temp Pulse Resp BP Pulse Ox O2 Del Method 98.2 F 75 13 123/73 96 Room Air 10/17/24 12:00 10/17/24 12:00 10/17/24 12:00 10/17/24 12:00 10/17/24 12:00 10/17/24 12:00 Narrative Exam Constitutional Alert, oriented x 3 and comfortable. Elderly female HEENT Vision grossly intact. Patent nares. Trachea midline Respiratory Chest normal on inspection and clear auscultation bilaterally Cardiovascular S1 and S2 audible, RRR. No murmurs carotid bruit. No gross JVD. Abdominal Soft and non tender to palpation in all quadrants. BS + Genitourinary No bladder tenderness, no flank pain. Normal to palpation Musculoskeletal Extremities tone within normal limits. No LE edema. Neurological CN II - XII grossly intact. Extremity motor and sensation grossly intact. NIHSS 0 Skin Warm, dry and intact. No apparent lesions. Psychiatric Patient has good affect, is cooperative Results: Labs 10/18/24 05:18 10/18/24 05:18 Labs: Short CBC 10/17/24 Range/Units 03:04 WBC 7.9 (3.6-11.0) Thou/mm3 Hgb 13.2 (12.0-16.0) g/dL Hct 39.5 (36.0-46.0) % Plt Count 239 (140-440) Thou/mm3 BMP 10/17/24 03:04 Sodium 142 Potassium 3.5 Chloride 108 H Carbon Dioxide 28.5 BUN 9 Creatinine 0.6 Glucose 136 H Calcium 9.5 Cardiac Enzymes 10/17/24 Range/Units 03:04 Troponin I < 0.002 (0.0-0.045) ng/mL Liver Function 10/17/24 Range/Units 03:04 Total Bilirubin 0.4 (0.3-1.2) mg/dL AST 11 (0-34) U/L ALT < 7 L (10-49) U/L Alkaline Phosphatase 102 (46-116) U/L Albumin 4.7 (3.4-4.8) gm/dL Urine 10/17/24 Range/Units 04:06 Urine Color Colorless A (Lt Yel-Yel) Urine Clarity Clear (Clear/Hazy) Urine pH 7.5 H (5.0-7.0) Ur Specific [place] 1.026 (1.001-1.035) Urine Protein Negative (Neg - Trace) Urine Glucose (UA) Negative (Negative) Quality Measures Quality Measures none Medications Home Medications and Allergies Home Medications ?Medication ?Instructions ?Recorded ?Confirmed ?Type cyclobenzaprine 10 mg tablet 10 mg PO HS PRN cramping 10/17/24 10/17/24 History dapagliflozin propaned 5 1 tab PO BID 10/17/24 10/17/24 History mg-metformin ER 1,000 mg tablet, ext rel 24hr (Xigduo XR) ergocalciferol (vitamin D2) 1,250 1,250 mcg PO QWEEK 10/17/24 10/17/24 History mcg (50,000 unit) capsule multivitamin 1 tab PO QDAY 10/17/24 10/17/24 History Allergies Allergy/AdvReac Type Severity Reaction Status Date / Time No Known Allergies Allergy Verified 10/17/24 02:12 Visit Medications Acetaminophen (Acetaminophen 325 Mg Tablet) 650 mg PO Q6H PRN PRN Reason: Fever >100.3 or pain Stop: 11/16/24 12:27 Albuterol/Ipratropium (Albuterol/Ipratropium (Duoneb) Rt Tracy 3 Ml Nebu) 3 ml INH Q2HR PRN PRN Reason: SHORTNESS OF BREATH OR WHEEZE Stop: 11/16/24 12:27 Aspirin (Aspirin Ec 81 Mg Tabec) 81 mg PO QDAY [facility] Stop: 11/17/24 08:59 Atorvastatin Calcium (Atorvastatin Calcium 20 Mg Tablet) 40 mg PO HS [facility] Stop: 11/16/24 20:59 Clopidogrel Bisulfate (Clopidogrel Bisulfate 75 Mg Tablet) 75 mg PO QDAY [facility] Stop: 11/16/24 12:44 Heparin Sodium (Porcine) (Heparin Sod Inj 5000 Unit/Ml Vial) 5,000 unit SC BID [facility] Stop: 10/31/24 12:44 Ondansetron HCl (Ondansetron Inj 2 Mg/Ml Inj 2 Ml) 4 mg IV Q6H PRN; Protocol PRN Reason: NAUSEA OR VOMITING Stop: 11/16/24 12:27 Pantoprazole Sodium (Pantoprazole 40 Mg Tablet) 40 mg PO QDAY [facility] Stop: 11/16/24 12:29 Sennosides (Senna Tablet) 1 tab PO QDAY [facility]; Protocol Stop: 11/16/24 12:29 Discontinued Medications Aspirin (Aspirin 81 Mg Chew) 81 mg PO X1 ONE Stop: 10/17/24 05:29 Last Admin: 10/17/24 05:40 Dose: 81 mg Aspirin (Aspirin Ec 81 Mg Tabec) 81 mg PO QDAY [facility] Stop: 11/17/24 08:59 Sodium Chloride (Ns) 1,000 mls @ 999 mls/hr IV .Q1H1M ONE Stop: 10/17/24 05:03 Last Infusion: 10/17/24 05:35 Dose: Infused Lorazepam (Lorazepam 2 Mg/Ml Vial) 1 mg IVP X1 ONE Stop: 10/17/24 07:43 Last Admin: 10/17/24 09:01 Dose: 1 mg Meclizine HCl (Meclizine Hcl 25 Mg Tablet) 25 mg PO X1 ONE Stop: 10/17/24 02:57 Last Admin: 10/17/24 03:36 Dose: 25 mg Ondansetron HCl (Ondansetron Inj 2 Mg/Ml Inj 2 Ml) 4 mg IV Q4HR PRN PRN Reason: NAUSEA OR VOMITING Stop: 11/16/24 02:52 Assessment & Plan Plan Patient is a 64-year-old female with a past medical history significant for fup-xvoawkp-mjrlrzong diabetes mellitus type 2, diabetic neuropathy and cataracts. She she presented with a chief complaint of dizziness. Patient will be admitted for workup and management of acute ischemic stroke. 1. Acute ischemic CVA Patient presented with a chief complaint of dizziness which started around 1 AM and was described as constant. Head CT negative for acute hemorrhage, mass effect or midline shift. Head/neck CTA significant for 70% stenosis mid M1 segment left MCA. Brain MRI with MRA significant for 4 mm focus restricted diffusion right cerebellar hemisphere which may represent an acute infarct. 15 mm segment 80% plus stenosis M1 segment left MCA Currently NIHSS 0 Patient passed nurse swallow screen Plan : - Patient is started on stroke protocol - Neuro checks q 4H - Head of bed elevated to 30 degrees - Seizure precautions in place - Speech, Language therapist evaluation ordered - Allow permissive HTN. Antihypertensives if BP >220/120, with a goal of reduction in BP during the first 24 hours - EKG ordered - ECHO with bubble study ordered - HbA1C, Lipid panel, TSH ordered - PRN Acetaminophen 650mg to avoid hyperthermia - Atorvastatin 40 mg po hS - ASA 81 mg po daily along with Plavix 75 mg po daily for 90 days followed by single agent therapy. Patient does not have A-fib, and has large artery stenosis greater than 70%. - DVT Prophylaxis with heparin 5000 units SC twice daily - PT/OT referrals placed - Teleneurology consulted. Appreciate recommendations 2. Qlw-kntszym-ayxkqfwbd diabetes mellitus type 2 3. Diabetic neuropathy Patient on Xigduo 5?1000 home medication. No HbA1c seen on file Plan: ? Follow-up on HbA1c ? Insulin sliding scale to cover for blood glucose spikes Health maintenance: Disposition: Pending PT eval, speech eval, echo with bubble study. Diet: Low consistent carb Lines: pIVs GI Prophylaxis: Pantoprazole Thrombo Prophylaxis: Heparin 5000 units SC twice daily Code status: FULL CODE Plan of care discussed with Attending Dr. Hameed and PGY3 Dr. Yenifer Trujillo MD PGY 1 Attending Provider Attestation/Addendum Rudi, Willow Hameed DO, attest that I was physically present for the kimbrough portions of the service and evaluated the patient with the resident and I reviewed and discussed the case with the resident and agree with the resident's findings and plans of care as documented above Patient is a 64-year-old female with past medical history of non-insulin dependent diabetes mellitus type 2 complicated by cataracts and diabetic neuropathy who presented to the ED with complaints of dizziness. Patient reports that the onset of symptoms occurred at 1 AM upon using the bathroom. She states that the room was spinning. She denies any double vision. She has blurry vision at baseline due to her cataracts. Daughter at bedside denied any slurred speech or difficulty speaking. Patient endorsed nausea, but denies any vomiting, chest pain, shortness of breath, fevers or chills. Daughter denies noticing any unsteadiness in patient's gait. A stroke alert was called in the ED during which CT head was done and showed no acute intracranial findings. Head and neck CTA showed 70% stenosis of mid M1 segment and left MCA. This was followed up with an MRI showing a 4 mm focus of restricted diffusion in the right cerebellar hemisphere consistent with acute infarct as well as a 50 mm segment of 80% stenosis in the M1 segment of left MCA. Will admit patient to telemetry for further workup medical management of acute CVA resulting in her symptoms of dizziness. Will start patient on aspirin and Plavix, in addition to statin. Will order echo and continue with cardiac monitoring. Will order PT and ST as well. On exam, there are no focal neurologic deficits. Patient appears to have a mild left facial droop. Gross sensation is intact in bilateral upper and lower extremities.
[2024-10-17] MEDS: PANTOPRAZOLE 40 MG TABLET PO (14:38)
[2024-10-17] MEDS: SENNA TABLET 1 TAB PO (14:38)
[2024-10-17] MEDS: CLOPIDOGREL BISULFATE 75 MG TABLET PO (14:38)
[2024-10-17] MEDS: HEPARIN SOD INJ 5000 UNIT/ML VIAL SC ×2 (14:42→20:38)
--- NOTE | 2024-10-17 16:08 | PC.NURSE ---
EKG DONE BY THIS VENEER SAMPLE MAKER
[2024-10-17] MEDS: ATORVASTATIN CALCIUM 20 MG TABLET 40 MG PO (20:38)
[2024-10-18] VITALS (10 sets, daily range): BP systolic 106–130; BP diastolic 53–89; PULSE 59–95; RESP 15–96; TEMP 36–36.6; O2SAT 94–97; BMI 33.2
[2024-10-18 05:55] LABS: Basophils % (Auto) 0 % (0-2.5); Eosinophils # (Auto) 0.1 Thou/mm3 (0.0-0.5); Eosinophils % (Auto) 2 % (0-10); Hematocrit 36.8 % (36.0-46.0); Hemoglobin 12.1 g/dL (12.0-16.0); Immature Granulocytes % (Auto) 0 % (0-0); Immature Granulocytes Auto 0.02 Thou/mm3 (0.00-0.00); Lymphocytes # (Auto) 2.2 Thou/mm3 (1.0-4.8); Lymphocytes % (Auto) 38 % (10-50); Mean Corpuscular HGB Conc 32.9 g/dl (31.0-37.0); Mean Corpuscular Hemoglobin 29.4 pg (25.0-35.0); Mean Corpuscular Volume 89 fL (80-100); Monocytes # (Auto) 0.6 Thou/mm3 (0.0-0.8); Monocytes % (Auto) 11 % (0-12); Neutrophils # (Auto) 2.8 Thou/mm3 (1.8-7.7); Neutrophils % (Auto) 48 % (37-80); Nucleated Red Blood Cell % 0 /100 WBC (0); Platelet Count 217 Thou/mm3 (140-440); RDW Standard Deviation 42.5 fL (36.4-46.3); Red Blood Count 4.12 Miln/mm3 (4.00-5.20); White Blood Count 5.7 Thou/mm3 (3.6-11.0)
[2024-10-18 06:15] LABS: Anion Gap 7 (7-16); BUN/Creatinine Ratio 25 Ratio (12-20); Blood Urea Nitrogen 15 mg/dL (9-23); Carbon Dioxide 29.7 mMol/L (20.0-31.0); Cardiac Risk Estimate 4.7 RATIO (3.7-5.6); Chloride 107 mMol/L (98-107); Cholesterol 164 mg/dL (132-200); Creatinine (Component) 0.6 mg/dL (0.6-1.3); Estimated Creatinine Clearance 81.9 mL/min (>60); Glucose 112 mg/dL (74-106); HDL Cholesterol 35 mg/dL (40-60); LDL Cholesterol,Calculated 88 mg/dL (0-130); Magnesium 1.9 mg/dL (1.6-2.6); Osmolality,Calculated 288 (275-295); Potassium 3.6 mMol/L (3.4-5.1); Sodium 144 mMol/L (136-145); Thyroid Stimulating Hormone 0.75 uIU/mL (0.55-4.78); Triglycerides 206 mg/dL (30-150); eGFR > 60 See Note
[2024-10-18 06:32] LABS: Glucose Estimated Average 120 mg/dL (80-131); Hemoglobin A1C 5.8 % Hgb (4.8-6.0)
--- NOTE | 2024-10-18 07:56 | PD.RESPRO ---
Documentation for date of: 10/18/24 Subjective Subjective Interval history: Patient seen and examined at bedside. No acute complaints at this time. Tolerating food. Able to walk to bathroom. Has not worked with PT yet. Waiting on PT and echo. Exam Vital Signs Temp Pulse Resp BP Pulse Ox O2 Del Method 96.8 F 61 16 114/53 L 95 Room Air 10/18/24 04:00 10/18/24 04:00 10/18/24 04:00 10/18/24 04:00 10/18/24 04:00 10/18/24 04:00 Narrative Exam Constitutional: NAD. [place]an-speaking. Resting comfortably. HEENT: NCAT. Vision grossly intact. Respiratory: CTAB bilaterally. Cardiac: RRR. Abdomen: Soft, non-distended, non-tender. MSK: No B/L LE edema. Skin: Warm, dry, intact. No obvious lesions. Neuro: Motor and sensation grossly intact. Psychiatric: Appropriate mood and affect. Objective Labs 10/18/24 05:18 10/18/24 05:18 Labs: Laboratory Results - last 24 hr 10/18/24 05:18 WBC 5.7 RBC 4.12 Hgb 12.1 Hct 36.8 MCV 89 MCH 29.4 MCHC 32.9 RDW Std Deviation 42.5 Plt Count 217 Neut % (Auto) 48 Lymph % (Auto) 38 [place] % (Auto) 11 Eos % (Auto) 2 Baso % (Auto) 0 Neut # (Auto) 2.8 Lymph # (Auto) 2.2 Granite # (Auto) 0.6 Eos # (Auto) 0.1 Baso # (Auto) 0.0 Immature Gran # (Auto) 0.02 H Absolute Nucleated RBC 0.00 Immature Gran % 0 Nucleated RBC % 0 Sodium 144 Potassium 3.6 Chloride 107 Carbon Dioxide 29.7 Anion Gap 7 BUN 15 Creatinine 0.6 Estim Creat Clear Calc 81.9 eGFR > 60 BUN/Creatinine Ratio 25 H Glucose [address] Glu mg/dL 120 Hemoglobin A1c 5.8 Calculated Osmolality 288 Calcium 9.0 Phosphorus 4.0 Magnesium 1.9 Triglycerides 206 H Cholesterol 164 LDL Cholesterol, Calc 88 HDL Cholesterol 35 L Cholesterol/HDL Ratio 4.7 TSH 0.75 Quality Measures Quality Measures none Assessment & Plan Assessment Current Active Medications: Generic Name Dose Route Start Last Admin Trade Name Freq PRN Reason Stop Dose Admin Acetaminophen 650 mg 12/28/24 12:28 Acetaminophen 325 Mg Tablet PO 11/16/24 12:27 Q6H PRN Fever >100.3 or pain Albuterol/Ipratropium 3 ml 10/17/24 12:28 Albuterol/Ipratropium (Duoneb) Rt Tracy 3 Ml Nebu INH 11/16/24 12:27 Q2HR PRN SHORTNESS OF BREATH OR WHEEZE Aspirin 81 mg 10/18/24 09:00 Aspirin Ec 81 Mg Tabec PO 11/17/24 08:59 QDAY NEHA Atorvastatin Calcium 40 mg 10/17/24 21:00 10/17/24 20:38 Atorvastatin Calcium 20 Mg Tablet PO 11/16/24 20:59 40 mg HS NEHA Administration Clopidogrel Bisulfate 75 mg 10/17/24 12:45 10/17/24 14:38 Clopidogrel Bisulfate 75 Mg Tablet PO 11/16/24 12:44 75 mg QDAY NEHA Administration Heparin Sodium (Porcine) 5,000 unit 10/17/24 12:45 10/17/24 20:38 Heparin Sod Inj 5000 Unit/Ml Vial SC 10/31/24 12:44 5,000 unit BID NEHA Administration Influenza Virus Vaccine Quadrival 0.5 ml 10/18/24 08:00 Influenza Virus Quadrivalent 0.5 Ml Syringe IMi 10/18/24 08:01 .ONCE ONE Ondansetron HCl 4 mg 10/17/24 12:28 Ondansetron Inj 2 Mg/Ml Inj 2 Ml IV 11/16/24 12:27 Q6H PRN NAUSEA OR VOMITING Protocol Pantoprazole Sodium 40 mg 10/17/24 12:30 10/17/24 14:38 Pantoprazole 40 Mg Tablet PO 11/16/24 12:29 40 mg QDAY NEHA Administration Sennosides 1 tab 10/17/24 12:30 10/17/24 14:38 Senna Tablet PO 11/16/24 12:29 1 tab QDAY NEHA Administration Protocol Plan Patient is a 64-year-old female with a past medical history significant for mal-udyyhdt-bbqwvtcza diabetes mellitus type 2, diabetic neuropathy and cataracts. She she presented with a chief complaint of dizziness. Patient will be admitted for workup and management of acute ischemic stroke. 1. Acute right cerebellar infarct Presenting with dizziness. Initial NIHSS Score 1, repeat NIHSS score 0. Head CT negative for acute hemorrhage, mass effect or midline shift. Head/neck CTA significant for 70% stenosis mid M1 segment left MCA. Brain MRI with MRA significant for 4 mm focus restricted diffusion right cerebellar hemisphere which may represent an acute infarct. 15 mm segment 80% plus stenosis M1 segment left MCA - ECHO with bubble study ordered - Atorvastatin 40 mg po hS - ASA 81 mg po daily along with Plavix 75 mg po daily for 90 days followed by single agent therapy. 2. Zct-qcvsxso-mdyumwcgq diabetes mellitus type 2, A1c 5.8 3. Diabetic neuropathy Patient on Xigduo 5?1000 home medication. Plan: - Hold home meds - Insulin sliding scale Health maintenance: Disposition: Pending PT eval, echo with bubble study. Anticipate discharge within 24-48 hours after echo read and PT. Diet: Low consistent carb Lines: pIVs GI Prophylaxis: Pantoprazole Thrombo Prophylaxis: Heparin 5000 units SC twice daily Code status: FULL CODE I have reviewed and discussed the patient's care with my attending, Dr. Cory Street MD PGY-3 Attending Provider Attestation/Addendum I, Willow Hameed DO, attest that I was physically present for the kimbrough portions of the service and evaluated the patient with the resident and I reviewed and discussed the case with the resident and agree with the resident's findings and plans of care as documented above Patient seen and evaluated this AM. Patient states that she is feeling improved with reduced dizziness today. Pending PT today and echo. Anticipate DC wtihin next 24hrs once remaining workup is completed.
[2024-10-18] MEDS: PANTOPRAZOLE 40 MG TABLET PO (09:06)
[2024-10-18] MEDS: CLOPIDOGREL BISULFATE 75 MG TABLET PO (09:06)
[2024-10-18] MEDS: ASPIRIN EC 81 MG TABEC PO (09:06)
[2024-10-18] MEDS: SENNA TABLET 1 TAB PO (09:06)
[2024-10-18] MEDS: HEPARIN SOD INJ 5000 UNIT/ML VIAL SC ×2 (09:07→23:00)
[2024-10-18] MEDS: INFLUENZA VIRUS QUADRIVALENT 0.5 ML SYRINGE IMi (09:07)
--- NOTE | 2024-10-18 12:33 | PC.SS ---
Kiana Glez is a 64-year-old female admitted to [facility] for Acute Ischemic Stroke. SS conducted bedside contact with the patient to complete initial assessment and to discuss discharge planning. Patient confirmed demographic information. Patient identifies her dtr Lisandra Glez [phone] as her surrogate decision maker. Patient resides at home with her dtrs and sons. Pt states she is able to complete all ADL?s independently, no need for any source of DME. Pts PCP is Dr. Salinas (last visit 09/17/2024) and her pharmacy of choice is [facility] on [address]. DC options discussed pt wishes to retrun home. Pts will provide transportation upon DC. No further intervention required at this time, social science analyst would be available to address any further concerns. DC Plan: Home Contact: Lisandra Newton [phone] PCP: Rita
--- NOTE | 2024-10-18 13:11 | PC.SS ---
Rounding: Pending ECHO and PT
[2024-10-18] MEDS: ATORVASTATIN CALCIUM 20 MG TABLET 40 MG PO (22:55)
[2024-10-19] VITALS (7 sets, daily range): BP systolic 97–123; BP diastolic 54–74; PULSE 65–101; RESP 12–96; TEMP 36.1–36.5; O2SAT 95–97
[2024-10-19 06:12] LABS: Basophils % (Auto) 0 % (0-2.5); Eosinophils # (Auto) 0.1 Thou/mm3 (0.0-0.5); Eosinophils % (Auto) 2 % (0-10); Hematocrit 37.2 % (36.0-46.0); Hemoglobin 12.3 g/dL (12.0-16.0); Immature Granulocytes % (Auto) 0 % (0-0); Immature Granulocytes Auto 0.01 Thou/mm3 (0.00-0.00); Lymphocytes # (Auto) 2.1 Thou/mm3 (1.0-4.8); Lymphocytes % (Auto) 31 % (10-50); Mean Corpuscular HGB Conc 33.1 g/dl (31.0-37.0); Mean Corpuscular Hemoglobin 29.3 pg (25.0-35.0); Mean Corpuscular Volume 89 fL (80-100); Monocytes # (Auto) 0.7 Thou/mm3 (0.0-0.8); Monocytes % (Auto) 11 % (0-12); Neutrophils # (Auto) 3.9 Thou/mm3 (1.8-7.7); Neutrophils % (Auto) 57 % (37-80); Nucleated Red Blood Cell % 0 /100 WBC (0); Platelet Count 262 Thou/mm3 (140-440); RDW Standard Deviation 41.6 fL (36.4-46.3); White Blood Count 6.9 Thou/mm3 (3.6-11.0)
[2024-10-19 06:22] LABS: Anion Gap 5 (7-16); BUN/Creatinine Ratio 35 Ratio (12-20); Blood Urea Nitrogen 21 mg/dL (9-23); Calcium 9.4 mg/dL (8.3-10.6); Carbon Dioxide 32.1 mMol/L (20.0-31.0); Chloride 105 mMol/L (98-107); Creatinine (Component) 0.6 mg/dL (0.6-1.3); Estimated Creatinine Clearance 82.6 mL/min (>60); Glucose 113 mg/dL (74-106); Osmolality,Calculated 287 (275-295); Potassium 3.8 mMol/L (3.4-5.1); Sodium 142 mMol/L (136-145); eGFR > 60 See Note
[2024-10-19] MEDS: CLOPIDOGREL BISULFATE 75 MG TABLET PO (08:23)
[2024-10-19] MEDS: PANTOPRAZOLE 40 MG TABLET PO (08:23)
[2024-10-19] MEDS: ASPIRIN EC 81 MG TABEC PO (08:23)
[2024-10-19] MEDS: SENNA TABLET 1 TAB PO (08:23)
[2024-10-19] MEDS: HEPARIN SOD INJ 5000 UNIT/ML VIAL SC (08:25)
--- NOTE | 2024-10-19 09:03 | PC.SS ---
SS follow up note; Pending Echo and PT eval.
--- NOTE | 2024-10-19 11:37 | ESPR_ITS ---
<Statement entered by Sruthi Street MD - 10/19/24 13:12> I discussed with and supervised my co-resident involved in the care of this patient. I agree with the assessment and plan as documented above. No acute problems overnight. Patient without any acute complaints. Pending PT evaluation and echo prior to discharge. Plan to discharge with aspirin, statin, and plavix and to follow up outpatient with her PCP. Anticipate discharge within the next 24-48 hours pending echo read. Sruthi Street MD PGY-3 Documentation for date of: 10/19/24 Subjective Subjective Interval history: 10/19: TRUPTIO. VSS. Patient states that she feels ok, does not attest to any new symptoms. ECHO being performed during physical examination. Daughter at bedside has not noticed any recent slurring of speech, focal weakness, or any other neurological signs. PT did not see patient yesterday. Pending PT examination, recommendations and ECHO read. Exam Vital Signs Temp Pulse Resp BP Pulse Ox O2 Del Method 97.0 F 81 24 H 123/70 97 Room Air 10/19/24 08:00 10/19/24 08:38 10/19/24 08:38 10/19/24 08:00 10/19/24 08:00 10/19/24 08:00 Narrative Exam Constitutional: NAD. Czech-speaking. Resting comfortably. HEENT: NCAT. Vision grossly intact. Respiratory: CTAB bilaterally. Cardiac: RRR. Abdomen: Soft, non-distended, non-tender. MSK: No B/L LE edema. Skin: Warm, dry, intact. No obvious lesions. Neuro: Motor and sensation grossly intact. Psychiatric: Appropriate mood and affect. Objective Labs 10/19/24 05:20 10/19/24 05:20 Labs: Laboratory Results - last 24 hr 10/19/24 05:20 WBC 6.9 RBC 4.20 Hgb 12.3 Hct 37.2 MCV 89 MCH 29.3 MCHC 33.1 RDW Std Deviation 41.6 Plt Count 262 D Neut % (Auto) 57 Lymph % (Auto) 31 [place] % (Auto) 11 Eos % (Auto) 2 Baso % (Auto) 0 Neut # (Auto) 3.9 Lymph # (Auto) 2.1 [place] # (Auto) 0.7 Eos # (Auto) 0.1 Baso # (Auto) 0.0 Immature Gran # (Auto) 0.01 H Absolute Nucleated RBC 0.00 Immature Gran % 0 Nucleated RBC % 0 Sodium 142 Potassium 3.8 Chloride 105 Carbon Dioxide 32.1 H Anion Gap 5 L BUN 21 Creatinine 0.6 Estim Creat Clear Calc 82.6 eGFR > 60 BUN/Creatinine Ratio 35 H Glucose 113 H Calculated Osmolality 287 Calcium 9.4 Quality Measures Quality Measures none Assessment & Plan Assessment Current Active Medications: Generic Name Dose Route Start Last Admin Trade Name Freq PRN Reason Stop Dose Admin Acetaminophen 650 mg 10/17/24 12:28 Acetaminophen 325 Mg Tablet PO 11/16/24 12:27 Q6H PRN Fever >100.3 or pain Albuterol/Ipratropium 3 ml 10/17/24 12:28 Albuterol/Ipratropium (Duoneb) Rt Tracy 3 Ml Nebu INH 11/16/24 12:27 Q2HR PRN SHORTNESS OF BREATH OR WHEEZE Aspirin 81 mg 10/18/24 09:00 10/19/24 08:23 Aspirin Ec 81 Mg Tabec PO 11/17/24 08:59 81 mg QDAY NEHA Administration Atorvastatin Calcium 40 mg 10/17/24 21:00 10/18/24 22:55 Atorvastatin Calcium 20 Mg Tablet PO 11/16/24 20:59 40 mg HS NEHA Administration Clopidogrel Bisulfate 75 mg 10/17/24 12:45 10/19/24 08:23 Clopidogrel Bisulfate 75 Mg Tablet PO 11/16/24 12:44 75 mg QDAY NEHA Administration Heparin Sodium (Porcine) 5,000 unit 10/17/24 12:45 10/19/24 08:25 Heparin Sod Inj 5000 Unit/Ml Vial SC 10/31/24 12:44 5,000 unit BID NEHA Administration Ondansetron HCl 4 mg 10/17/24 12:28 Ondansetron Inj 2 Mg/Ml Inj 2 Ml IV 11/16/24 12:27 Q6H PRN NAUSEA OR VOMITING Protocol Pantoprazole Sodium 40 mg 10/17/24 12:30 10/19/24 08:23 Pantoprazole 40 Mg Tablet PO 11/16/24 12:29 40 mg QDAY NEHA Administration Sennosides 1 tab 10/17/24 12:30 10/19/24 08:23 Senna Tablet PO 11/16/24 12:29 1 tab QDAY NEHA Administration Protocol Plan Patient is a 64-year-old female with a past medical history significant for iji-dumokks-npjyxopoc diabetes mellitus type 2, diabetic neuropathy and cataracts. She she presented with a chief complaint of dizziness. Patient will be admitted for workup and management of acute ischemic stroke. 1. Acute right cerebellar infarct Presenting with dizziness. Initial NIHSS Score 1, repeat NIHSS score 0. Head CT negative for acute hemorrhage, mass effect or midline shift. Head/neck CTA significant for 70% stenosis mid M1 segment left MCA. Brain MRI with MRA significant for 4 mm focus restricted diffusion right cerebellar hemisphere which may represent an acute infarct. 15 mm segment 80% plus stenosis M1 segment left MCA - ECHO with bubble study ordered- pending result - Atorvastatin 40 mg po hS - ASA 81 mg po daily along with Plavix 75 mg po daily for 90 days followed by single agent therapy. 2. Gez-wmxdrpy-pqiblbawo diabetes mellitus type 2, A1c 5.8 3. Diabetic neuropathy Patient on Xigduo 5?1000 home medication. Plan: - Insulin sliding scale Health maintenance: Disposition: Pending PT sharita falcon with bubble study. Anticipate discharge within 24-48 hours after echo read and PT. Diet: Low consistent carb Lines: pIVs GI Prophylaxis: Pantoprazole Thrombo Prophylaxis: Heparin 5000 units SC twice daily Code status: FULL CODE I have reviewed and discussed the patient's care with my attending, Dr. Yoseph Gil DO PGY-1 Attending Provider Attestation/Addendum Willow Grijalva DO, attest that I was physically present for the kimbrough portions of the service and evaluated the patient with the resident and I reviewed and discussed the case with the resident and agree with the resident's findings and plans of care as documented above Patient seen and evaluated this AM. She reports no further episodes of dizziness. Patient is pending echo and PT. Anticipate DC within next 24hrs once remaining workup is completed.
--- NOTE | 2024-10-19 14:28 | ESDS_ITS ---
<Statement entered by Willow Hameed DO - 10/19/24 15:00> I, Willow Hameed DO, attest that I was physically present for the kimbrough portions of the service and evaluated the patient with the resident and I reviewed and discussed the case with the resident and agree with the resident's findings and plans of care as documented above Planned Discharge Date 10/19/24 DS: Providers Provider Date of admission: 10/17/24 12:28 Primary care physician: Isela Salinas PA-C Admitting Provider: Willow Hameed DO Attending Provider on Admission: Willow Hameed DO Consults: 10/17/24 02:53 Consult to Neurology / Tele-Neurology Routine Comment: Consulting Provider: [facility] 10/17/24 12:33 Referral - RIGHT OF WAY CLEARER Hand Pleater Routine Comment: Acute stroke. Passed swallow screen 10/17/24 15:10 Referral Physical Therapy Routine Comment: Physician Instructions: Attending Provider on DC: Stephenie Gil Discharging Provider: Stephenie Gil DS: Diagnosis Problem List Completed Was Problem List Reviewed/Reconciled?: Yes Hospital Course Hospital Course Hospital course: Patient is a 64-year-old female with a past medical history significant for aeb-euhvujw-omdrcyftn diabetes mellitus type 2, diabetic neuropathy and cataracts. She she presented with a chief complaint of dizziness. According to patient she woke up around 1 AM to use the bathroom and felt dizzy. She described it as the room was spinning. She was unable to stand up by herself because of the dizziness. Reported as constant. Associated with nausea. Denied any unilateral weakness. Also denies any vomiting, fever, chills, sick contacts. Upon review also denied any chest pain, SOB, PND or orthopnea. Also denies any dysuria. Of note patient states that she ran out of her diabetic medication for the past week. Head CT negative for acute hemorrhage, mass effect or midline shift. Head/neck CTA significant for 70% stenosis mid M1 segment left MCA. Brain MRI with MRA significant for 4 mm focus restricted diffusion right cerebellar hemisphere which may represent an acute infarct. 15 mm segment 80% plus stenosis M1 segment left MCA Patient was admitted for stroke work up. Over her hospital course patient was not appreciated to have any new focal neurological deficits. Patient's dizziness resolved over her hospital stay. ECHO normal with (-) bubble study. No shunts noted. Pt able to ambulate with Physical Therapy. Patient will be discharged home on DAPT as well as atorvastatin, and encouraged to resume her home medications. Patient and family amenable to discharge, and advised to return to the hospital if symptoms persist or worsen. Status at Discharge Cognitive/behavioral status at discharge: Stable at discharge Time Spent with Patient Time attestation: Total time spent providing and/or coordinating discharge services: > 35min Exam Vital Signs Temp Pulse Resp BP Pulse Ox O2 Del Method 97.3 F 83 12 115/74 95 Room Air 10/19/24 12:00 10/19/24 12:10/19/24 12:00 10/19/24 12:00 10/19/24 12:10/19/24 12:00 Narrative Exam Constitutional: NAD. Egyptian-speaking. Resting comfortably. HEENT: NCAT. Vision grossly intact. Respiratory: CTAB bilaterally. Cardiac: RRR. Abdomen: Soft, non-distended, non-tender. MSK: No B/L LE edema. Skin: Warm, dry, intact. No obvious lesions. Neuro: Motor and sensation grossly intact. Psychiatric: Appropriate mood and affect. Discharge Plan Plan Patient Disposition: HOME (Self Care) Prescriptions/Referrals Prescriptions/Med Rec: New atorvastatin 40 mg tablet 40 mg PO HS 30 Days Qty: 30 0RF clopidogrel 75 mg Tablet 75 mg PO QDAY 19 Days Qty: 19 0RF aspirin 81 mg Tablet,Delayed Release (Dr/Ec) 81 mg PO QDAY 30 Days Qty: 30 0RF Continued multivitamin Tablet 1 tab PO QDAY Patient Comments: TAKE ONE TABLET BY MOUTH EVERY DAY VITAMIN cyclobenzaprine 10 mg tablet 10 mg PO HS PRN (Reason: cramping) Patient Comments: TAKE ONE TABLET BY MOUTH AT BEDTIME NEEDED FOR MUSCLE SPASMS ergocalciferol (vitamin D2) 1,250 mcg (50,000 unit) capsule 1,250 mcg PO QWEEK Patient Comments: TAKE ONE CAPSULE BY MOUTH EVERY WEEK VITAMIN dapaglifloz propaned-metformin [Xigduo XR] 5-1,000 mg tablet, IR - ER, biphasic 24hr 1 tab PO BID Referrals: Isela Salinas PA-C [Primary Care Provider] - Patient/Caregiver Discharge Instructions Other Discharge Activity Instructions:: Please take your new medications as indicated: Atorvastatin 40 mg once a day Clopidogrel 75 mg once a day Aspirin 81 mg once a day Follow up with your primary care doctor and be referred to a neurologist. Please follow up with your Primary Care Provider for an outpatient referral to a neurologist for follow up Please return to the emergency department if your symptoms worsen or recur. Education Materials: Symptoms of Stroke, Discharge Instructions for Stroke Print Language: Egyptian Stand Alone Forms: Suzie Award Info., Patient Portal Info Letter Discharge Order Discharge Orders: Discharge (Routine); Ordered 10/19/24 Ordered By: Sruthi Street Quality Discharge Quality Measures VTE prophylaxis
--- NOTE | 2024-10-19 15:32 | PC.PT ---
PT eval only. Patient is I with transfers and ambulation without AD.
== END 2024-10-19 15:55 | disposition home or self-care (01) | DRG 45 ==
LOC: SERX 06:26 → SERHOLD 12:41 → S2NX 16:33
PROVIDERS: Physician Assistant; Admitting Provider Internal Medicine; Emergency Provider Emergency Medicine; PCP Specialist; Visit Provider Internal Medicine
DX: I63.541 Cerebral infarction due to unspecified occlusion or stenosis of right cerebellar artery (principal); R29.701 NIHSS score 1; E11.40 Type 2 diabetes mellitus with diabetic neuropathy, unspecified; R29.810 Facial weakness; Z91.148 Patient's other noncompliance with medication regimen for other reason
CPT/HCPCS: 36415; 70450; 70496; 70498; 70544; 80048; 80053; 80061; 80307; 81001; 83036; 83735; 84100; 84443; 84484; 85025; 85610; 85730; 87077; 87086; 87186; 90686; 93005; 93306; 96360; 96372; 97162; 99291; A4649; J1643; J2060; J7030; Q9967; A9270; J1644; J9060

== ENCOUNTER 2025-06-07 20:37 | Emergency (ER) | payer MEDICAID, SELFPAY ==
[2025-06-07 20:38] VITALS: BP 132/85; PULSE 87; RESP 18; TEMP 36.9; O2SAT 98; BMI 27.3
--- NOTE | 2025-06-07 21:22 | XR_ITS ---
Examination: Knee, right , 3 views Technique: Knee AP, lateral, oblique 3 views Date and time of exam: June 07, 2025, 2152 hours INDICATIONS: Patient fell today with injury to the knee, knee pain. FINDINGS: Severe osteopenia Artifact on the lateral view anterior to the femoral shaft Moderate knee effusion Advanced tricompartment osteoarthritis No acute fracture IMPRESSION: No acute fracture.
--- NOTE | 2025-06-07 21:22 | XR_ITS ---
Examination: Left ankle 2 views Technique one AP lateral left ankle 2 views Date and time: June 07, 2025 2154 hours INDICATIONS: Patient fell today with injury of the ankle, ankle pain. FINDINGS: No acute fracture No dislocation No foreign body IMPRESSION: No acute fracture
--- NOTE | 2025-06-07 23:01 | PD.EDLOWEX ---
Lower Extremity Injury RME/HPI General Chief Complaint: Extremity Injury, Lower Stated Complaint: TRIP AND FALL R KNEE PAIN L ANKLE PAIN Time Seen by Provider: 06/07/25 21:20 Arrival date/time: 06/07/25 20:37 This is a case of 65-year-old female who was brought by the daughter due to fall from the tractor today patient now complaining of right knee pain and left ankle with swelling patient daughter denies any head neck chest or abdominal injury no loss of consciousness Related Data Home Medications ?Medication ?Instructions ?Recorded ?Confirmed cyclobenzaprine 10 mg tablet 10 mg PO HS PRN cramping 10/17/24 10/17/24 dapagliflozin propaned 5 1 tab PO BID 10/17/24 10/17/24 mg-metformin ER 1,000 mg tablet, ext rel 24hr (Xigduo XR) ergocalciferol (vitamin D2) 1,250 1,250 mcg PO QWEEK 10/17/24 10/17/24 mcg (50,000 unit) capsule multivitamin 1 tab PO QDAY 10/17/24 10/17/24 Previous Rx's ?Medication ?Instructions ?Recorded tramadol 50 mg tablet 50 mg PO Q8H PRN pain #10 tabs 06/07/25 Allergies Allergy/AdvReac Type Severity Reaction Status Date / Time No Known Allergies Allergy Verified 06/07/25 20:42 Course Orders Category Date Time Status XR ankle LT 2V Stat Exams 06/07/25 21:22 Completed XR knee RT 3V Stat Exams 06/07/25 21:22 Completed HYDROcodone*/APAP 5/325 [[place] 5/325] Med 06/07/25 22:57 Once 1 tab PO X1 ONE Vital Signs Vital signs: Vital Signs Temperature 98.5 F 06/07/25 20:38 Pulse Rate 87 06/07/25 20:38 Respiratory Rate 18 06/07/25 20:38 Blood Pressure 132/85 H 06/07/25 20:38 Pulse Oximetry (%) 98 06/07/25 20:38 Oxygen Delivery Method Room Air 06/07/25 20:38 Extremity Injury, Lower Medications / Prescriptions Medication administrations:: Medication Administration History Hydrocodone Bitart/Acetaminophen (Hydrocodone/Apap 5/325 Tablet) 1 tab PO X1 ONE Stop: 06/07/25 22:58 Discharge Plan Plan Patient Disposition: HOME (Self Care) Patient condition on transfer: Stable Prescriptions/Referrals Prescriptions/Med Rec: New tramadol 50 mg tablet 50 mg PO Q8H PRN (Reason: pain) Qty: 10 0RF No Action multivitamin Tablet 1 tab PO QDAY Patient Comments: TAKE ONE TABLET BY MOUTH EVERY DAY VITAMIN cyclobenzaprine 10 mg tablet 10 mg PO HS PRN (Reason: cramping) Patient Comments: TAKE ONE TABLET BY MOUTH AT BEDTIME NEEDED FOR MUSCLE SPASMS ergocalciferol (vitamin D2) 1,250 mcg (50,000 unit) capsule 1,250 mcg PO QWEEK Patient Comments: TAKE ONE CAPSULE BY MOUTH EVERY WEEK VITAMIN dapaglifloz propaned-metformin [Xigduo XR] 5-1,000 mg tablet, IR - ER, biphasic 24hr 1 tab PO BID Referrals: Kiana Kang FNP [Primary Care Provider] - In 1 week Problem List Clinical Impression: Fall, Knee sprain, Effusion of knee, Osteoarthritis of knee, Ankle sprain Patient/Caregiver Discharge Instructions Education Materials: Treating Ankle Sprains, ED CATRACHO Wrap, ED Fall with Uncertain Cause, ED Knee Effusion, ED Knee Sprain, Osteoarthritis Additional Instructions: Follow-up with your primary care physician in 3 days for reevaluation and to be referred to orthopedic surgeon for further evaluation and treatment of osteoarthritis and knee effusion for possible MRI worsening symptoms or any emergent concerns such as numbness weakness tingling sensation call 911 or go to the nearest emergency room ice pack every 2 hours for 20 minutes for 24 hours then alternate with warm compress elevate to decrease swelling keep the Catracho bandage in place until cleared by your primary care physician take your medication as directed Print Language: Sinhala Stand Alone Forms: Suzie Award Info., Patient Portal Info Letter PA/OFFICE SECRETARY Supervising Physician BARRIE/BLAYNE Supervising Physician: dr mirza
[2025-06-07] MEDS: HYDROcodone/APAP 5/325 TABLET 1 TAB PO (23:18)
== END 2025-06-07 23:23 | disposition home or self-care (01) ==
PROVIDERS: Emergency Provider Emergency Medicine; PCP Registered Nurse Community Health
DX: S83.91XA Sprain of unspecified site of right knee, initial encounter (principal); W01.0XXA Fall on same level from slipping, tripping and stumbling without subsequent striking against object, initial encounter; M25.469 Effusion, unspecified knee; M17.11 Unilateral primary osteoarthritis, right knee; S93.402A Sprain of unspecified ligament of left ankle, initial encounter
CPT/HCPCS: 73562; 73600; 99283; A9270